=== PATIENT | male | born 1955 | race Two or more races ===

== ENCOUNTER 2020-03-17 13:11 | Day surgery (SDC) | payer OTHER ==
[~2020-03-17] VITALS: Ht 162.6 cm; Wt 80.9 kg
[2020-03-17] MEDS ORDERED: GLYB5TAB3 PO (13:53)
[2020-03-17] MEDS ORDERED: METF500T17 PO (13:53)
[2020-03-17] MEDS ORDERED: CHLORHEXIDINE 15 ML UDC ONE (13:57)
[2020-03-17] MEDS ORDERED: CHLORHEXIDINE 15 ML UDC MM ONE (14:00)
[2020-03-17] MEDS ORDERED: LACTATED RINGERS 1,000 ML IV SCH (14:00)
[2020-03-17 14:23] VITALS: BP 140/78
[2020-03-17 15:29] LABS: ALANINE AMINOTRANSFERASE 49 U/L (12-78); ANION GAP 6 mmol/L (5-15); CHLORIDE 105 mmol/L (98-107); CREATININE 0.94 mg/dL (0.7-1.3)
[2020-03-17 15:32] LABS: ALKALINE PHOSPHATASE 92 U/L (45-117); BILIRUBIN,TOTAL 0.3 mg/dL (0.2-1.0); TOTAL PROTEIN 7.2 g/dL (6.4-8.2)
[2020-03-17] MEDS ORDERED: BUPIVACAINE/PF-EPI 0.5% 1:200K ONE (15:38)
[2020-03-17] MEDS ORDERED: MIDAZOLAM 1 MG/ML, 2ML ONE (15:53)
[2020-03-17] MEDS ORDERED: FENTANYL PF 250 MCG/5ML ONE (15:54)
[2020-03-17] MEDS ORDERED: NEOSTIGMINE 1 MG/ML, 10ML ONE (16:00)
[2020-03-17] MEDS ORDERED: PROPOFOL 10 MG/ML, 20ML ONE (16:00)
[2020-03-17] MEDS ORDERED: GLYCOPYRROLATE 0.2MG/1ML, 5ML ONE (16:00)
[2020-03-17] MEDS ORDERED: CEFAZOLIN 1,000 MG ONE (16:00)
[2020-03-17] MEDS ORDERED: ROCURONIUM 10 MG/ML,10ML ONE (16:00)
[2020-03-17] MEDS ORDERED: ONDANSETRON 2MG/ML, 2ML ONE (16:00)
[2020-03-17] MEDS ORDERED: BUPIVACAINE/PF-EPI 0.5% 1:200K INFIL ONE ×2 (16:16)
[2020-03-17] MEDS ORDERED: LABETALOL 5MG/ML, 20ML IV PRN (17:00)
[2020-03-17] MEDS ORDERED: OXYcodone 5 MG/5 ML ORAL.SOL UDC PO PRN (17:00)
[2020-03-17] MEDS ORDERED: HYDROmorphone 1 MG/ML, 1ML INJ IVPush PRN (17:00)
[2020-03-17] MEDS ORDERED: PROMETHAZINE 25 MG/ML, 1ML IVPush PRN (17:00)
[2020-03-17] MEDS ORDERED: HALOPERIDOL 5 MG/ML IV PRN (17:00)
[2020-03-17] MEDS ORDERED: morphine SULFATE 10 MG/ML, 1ML IVPush PRN (17:00)
[2020-03-17] MEDS ORDERED: FENTANYL PF 100 MCG/2ML IV PRN (17:00)
[2020-03-17] MEDS ORDERED: ACETAMINOPHEN 325 MG TABLET PO PRN (17:00)
[2020-03-17] MEDS ORDERED: hydrALAzine 20 MG/ML, 1ML IV PRN (17:00)
[2020-03-17] MEDS ORDERED: MEPERIDINE/PF 25MG/0.5ML IVPush PRN (17:00)
[2020-03-17] MEDS ORDERED: SUGAMMADEX 200 MG/2 ML IVPush ONE (17:06)
[2020-03-17] MEDS ORDERED: INSULIN SINGLE DOSE, ER ONE ×2 (17:16→17:25)
[2020-03-17] MEDS ORDERED: INSULIN REGULAR 100 UNITS/ML, 3ML VIAL SQ-INSULIN ONE (18:00)
== END 2020-03-17 20:00 | disposition home or self-care (01) ==
LOC: OUT 13:11
PROVIDERS: ATTEND Surgery
DX: K40.30 Unilateral inguinal hernia, with obstruction, without gangrene, not specified as recurrent (principal); E11.9 Type 2 diabetes mellitus without complications; I10 Essential (primary) hypertension; M10.9 Gout, unspecified; Z79.899 Other long term (current) drug therapy; Z79.84 Long term (current) use of oral hypoglycemic drugs; Z72.89 Other problems related to lifestyle; Z82.49 Family history of ischemic heart disease and other diseases of the circulatory system; Z83.3 Family history of diabetes mellitus
CPT/HCPCS: 49650; 80053; 82962; 93005; C1781; J0690; J1815; J2250; J2405; J2704; J2710; J3010; J7120; S2900